=== PATIENT | female | born 2000 | race Caucasian/White ===

== ENCOUNTER 2025-08-06 07:39 | Emergency (ER) | payer BC, SELFPAY ==
[2025-08-06 07:47] VITALS: BP 123/93
--- NOTE | 2025-08-06 08:33 | ED.GENMED ---
History of Present Illness
General
Chief Complaint: Anal/Rectal Problem
Source: patient
Exam Limitations: none
Time Seen by Provider: 08/06/25 08:19
Nursing documentation reviewed up to this point in time: agreed with
History of Present Illness
History of Present Illness:
Note:
CHIEF COMPLAINT(S)
Constipation and abdominal pain.
HISTORY OF PRESENT ILLNESS
The patient is a 24-year-old female who presents with complaints of severe constipation and abdominal pain that commenced around 10:30 PM last night. She initially experienced a sensation of needing to defecate, with minimal stool passage and a
continued sensation of incomplete evacuation. Attempts at further bowel movements were unsuccessful, and maneuvering exacerbated the pain. The patient reports attempting to relieve the condition with two stool softeners without significant
improvement. She describes the pain as intense and affecting her ability to move. She experiences a feeling of rectal pressure and reports an absence of bowel movement control. The patient acknowledges a prior pattern of regular bowel movements,
indicating that this level of constipation is atypical for her. She is currently taking control but no other medications, including pain medications or narcotics.
MEDICATIONS
- control
REVIEW OF SYSTEMS
- Gastrointestinal: Constipation, abdominal pain, rectal pressure, decreased control over bowel movements.
PHYSICAL EXAM
General: Alert, in visible discomfort.
Skin: Warm, dry.
Head: Normocephalic, atraumatic.
Neck: Supple, trachea midline.
Eye, Ears, Nose, Mouth and Throat: Oral mucosa moist.
Cardiovascular: Normal peripheral perfusion, no edema.
Respiratory: Respirations are non-labored.
Gastrointestinal: Abdomen tender upon palpation, non-distended. rectal exam: fecal impaction, no hemorrhoids
Back: Normal range of motion, normal alignment.
Musculoskeletal: Normal ROM, normal strength.
Neurological: Alert and oriented to person, place, time, and situation, no focal neurological deficit observed.
Psychiatric: Cooperative, appropriate mood & affect.
PLAN
The plan discussed includes the administration of magnesium citrate to alleviate constipation, which the patient is to take at home. Following this, the patient is instructed to use Miralax, one scoop daily mixed with juice, for one week.
Instructions will be provided in written form to ensure the patient can refer to them as needed.
DIFFERENTIAL DIAGNOSIS
The Differential Diagnosis includes, in no particular order and is not limited to:
- Constipation
- Bowel obstruction
- Irritable bowel syndrome
- Fecal impaction
- Gastrointestinal motility disorder
- Anorectal dysfunction
- Colonic inertia
- Secondary constipation due to medication
- Hirschsprung�s disease
- Hypothyroidism
CARE-UPDATE
08/06/25 - 08:33
Manual fecal disimpaction was performed, resulting in some relief for the patient. The patient is advised to take magnesium citrate at home and has been prescribed a medication regimen, to be taken once daily for one week. Continued follow-up with
gastroenterology is recommended.
Disposition:
SUMMARY OF ENCOUNTER
The patient, a 24-year-old female, presented to the emergency department with complaints of severe constipation and abdominal pain that began the previous night. She experienced a sensation of needing to defecate with minimal stool passage, and the
condition did not improve with the use of stool softeners. A manual fecal disimpaction was performed in the emergency department, providing some relief. Given the patients symptoms and presentation, magnesium citrate was administered to aid bowel
movement, with additional at-home management instructions given.
DISPOSITION
Discharged home.
EMERGENCY TREATMENTS ADMINISTERED
Manual fecal disimpaction was performed in the emergency department.
PLAN
The patient is instructed to take magnesium citrate upon returning home and to continue with Miralax (polyethylene glycol) one scoop daily mixed with juice for one week. Follow-up with gastroenterology and chronic care management was recommended.
PATIENT EDUCATION AND COUNSELING
The patient was informed regarding the use of magnesium citrate and Miralax for constipation relief. Precautions were provided concerning potential symptoms and managing constipation at home. Instructions were given to follow up with
gastroenterology for further evaluation and management of her condition.
FOLLOW-UP INSTRUCTIONS
The patient is advised to follow up with a prepleater for further evaluation and chronic care management.
MEDICATION RECONCILIATION
1. Magnesium citrate to be taken at home for immediate constipation relief.
2. Polyethylene glycol (Miralax) one scoop daily for one week.
MEDICAL DECISION MAKING
1. Number and Complexity of Problems Addressed: Chronic conditions affecting care include potential constipation, bowel obstruction, irritable bowel syndrome, fecal impaction, gastrointestinal motility disorder, anorectal dysfunction, colonic
inertia, secondary constipation due to medication, Hirschsprung�s disease, and hypothyroidism.
2. Data:
- Category 1: No specific labs reviewed in this encounter.
- Category 3: Management discussion involved instructions for follow-up with gastroenterology for further evaluation.
- Risk: Prescription medication was prescribed including magnesium citrate and polyethylene glycol (Miralax) to manage constipation symptoms.
DIAGNOSIS
Fecal impaction
Past History
Past History
ED Past Medical History: None and Psychiatric (depression, anxiety)
ED Past Surgical History: None
Social History
Tobacco: Non-smoker
Alcohol: None
Drug: Marijuana
Phy Exam
Physical Exam
Physical Exam:
.
Course
Vital Signs
Initial and Last Documented VS:
Initial Vital Signs
Temp Pulse Resp BP Pulse Ox
98.5 F 103 20 123/93 97
08/06/25 07:47 08/06/25 07:47 08/06/25 07:47 08/06/25 07:47 08/06/25 07:47
Last Documented Vital Signs
Temp Pulse Resp BP Pulse Ox
98.5 F 103 20 123/93 97
08/06/25 07:47 08/06/25 07:47 08/06/25 07:47 08/06/25 07:47 08/06/25 07:47
*Pulse Oximetry
SaO2: 97
Oxygen Mode of Delivery: Room air
Patient hypoxic: no
*Critical Care Note
Total Time (30-74mins, 75-104mins- exclusive of procedures): Not Applicable
ED Attending Note
-
Portions of this chart may have been created with voice recognition software.� Occasional wrong word or��sound alike� substitutions may have occurred due to the inherent limitations of voice recognition software.
Discharge Plan
Departure
Patient Disposition: Home (Routine Discharge)
Date of Disposition: 08/06/25
Time of Disposition: 08:34
Patient with high blood pressure during this ER visit?: Yes
Condition: Good
Discharge Problem:
Fecal impaction in rectum
Instructions: Fecal Impaction, Constipation in adults - ED (DC), BLOOD PRESSURE
Prescriptions:
No Action
lamotrigine 100 MG tablet
100 mg PO HS
escitalopram oxalate 20 MG tablet
20 mg PO DAILY
Control
1 tab PO DAILY AT 0700
Lamictal:
75 mg PO DAILY AT 0700
amoxicillin-pot clavulanate 1 TABLET tablet
1 tab PO Q12H 14 Days Qty: 28 0RF
ondansetron 4 MG tablet,disintegrating
4 mg PO BIDPRN PRN (Reason: nausea) Qty: 12 0RF
ibuprofen 600 MG tablet
600 mg PO Q6 Qty: 20 0RF
Referrals:
Lora Raphael PA [Family Provider, Family Practice] - Call in 1-3 days for appt
Activity Restrictions/Additional Instructions:
Follow up with gastroenterology as scheduled. Take magnesium citrate when you get home and can stay near a bathroom. Take miralax 1 scoop once a day in juice for 1 week. Return for any concerns.
Interventions
Interventions:
*Risk Screen - Suicide Last Done: 08/06/25 07:48
*General Assessment Last Done: 08/06/25 07:48
Discharge Date and Time
Print Language: CZECH
[2025-08-06] MEDS: CITROMA 300 ML PO (08:48)
== END 2025-08-06 08:50 | disposition home or self-care (01) ==
LOC: EMR 07:39
PROVIDERS: EMERGENCY PHYSICIAN Emergency Medicine; FAMILY PHYSICIAN Physician Assistant
DX: K56.41 Fecal impaction (principal); R10.9 Unspecified abdominal pain
CPT/HCPCS: 99282

== ENCOUNTER → 2025-09-20 12:52 | Outpatient (REF) | payer BC, SELFPAY | LOC: HWRAD 12:52 | PROVIDERS: ATTENDING PHYSICIAN Student in an Organized Health Care Education/Training Program; FAMILY PHYSICIAN Physician Assistant | DX: R10.84 Generalized abdominal pain (principal) | CPT/HCPCS: 76700 ==

== ENCOUNTER 2025-11-01 06:29 | Day surgery (SDC) | payer BC, SELFPAY | END 2025-11-01 11:45 | disposition home or self-care (01) | LOC: GI 06:29 | PROVIDERS: ATTENDING PHYSICIAN Student in an Organized Health Care Education/Training Program | DX: K59.00 Constipation, unspecified (principal); K20.90 Esophagitis, unspecified without bleeding; I89.0 Lymphedema, not elsewhere classified; R10.84 Generalized abdominal pain; R11.0 Nausea; R14.0 Abdominal distension (gaseous) | CPT/HCPCS: 43239; 45378; 88305; 88342 ==